=== PATIENT | male | born 1985 | race Caucasian/White ===

== ENCOUNTER 2021-10-30 16:22 | Emergency (ER) | payer OTHER ==
[2021-10-30 16:39] VITALS: TEMP 98; BMI 23.2
[2021-10-30 19:30] VITALS: BP 127/88; PULSE 88
== END 2021-10-30 19:44 | disposition home or self-care (01) ==
LOC: JER 16:22
DX: S62.91XA Unspecified fracture of right hand, initial encounter for closed fracture (principal); W22.8XXA Striking against or struck by other objects, initial encounter
CPT/HCPCS: 73110-TC-RT-FY; 73130-TC-RT-FY; 99283-25

== ENCOUNTER 2021-11-01 06:45 | Emergency (ER) | payer OTHER ==
[2021-11-01 07:11] VITALS: TEMP 98.5; BMI 23.3
[2021-11-01] MEDS ORDERED: ACETAMINOPHEN 325 MG TABLET (FP) PO ONE (08:30)
[2021-11-01] MEDS ORDERED: ACETAMINOPHEN 325 MG TABLET (FP) ONE (08:33)
[2021-11-01 08:40] VITALS: BP 144/103; PULSE 100
== END 2021-11-01 09:08 | disposition home or self-care (01) ==
LOC: JER 06:45
PROC: 2W3GX1Z Immobilization of Right Thumb using Splint (ICD-10-PCS; principal; 2021-11-01)
DX: M79.644 Pain in right finger(s) (principal)
CPT/HCPCS: 99283-25

== ENCOUNTER 2022-12-08 03:53 | Emergency (ER) | payer OTHER ==
[2022-12-08 04:13] VITALS: BP 150/96; PULSE 107; RESP 20; TEMP 98.1; BMI 25.1
[2022-12-08] MEDS ORDERED: hydrOXYzine HCL 10 MG/5 ML LIQUID BULK BOTTLE PO ONE (04:24)
[2022-12-08] MEDS ORDERED: hydrOXYzine PAMOATE 25 MG CAPSULE (FP) PO ONE ×2 (04:26→05:19)
== END 2022-12-08 05:39 | disposition home or self-care (01) ==
LOC: JER 03:53
DX: R21 Rash and other nonspecific skin eruption (principal); L29.9 Pruritus, unspecified
CPT/HCPCS: 99283-25